=== PATIENT | male | born 1995 | race Caucasian/White ===

== ENCOUNTER 2016-08-19 14:24 | Emergency (ER) | payer OTHER ==
--- NOTE | 2016-08-19 15:27 | ED ---
Head Injury - HPI Summary HPI Summary: 21 M presents with head injury three days ago when he ran into a wooden door. He had a headache immediately after. He states that he woke up nauseous the next day. He admits to feeling tired and some difficulty concentrating. He denies any LOC, severe headache, or vomiting. He denies any change in vision or any altered mental status. He states he was still able to go to class and concentrate but felt very tired afterwards. He states that he hit the front of his head. He denies any ETOH or drug use with it. - History Of Current Complaint Chief Complaint: EDHeadInjury Stated Complaint: HEAD INJURY Time Seen by Provider: 08/19/16 14:57 Pain Intensity: 2 - Allergies/Home Medications Allergies/Adverse Reactions: Allergies Allergy/AdvReac Type Severity Reaction Status Date / Time Metoclopramide [From Reglan] Allergy Pain Verified 08/19/16 14:29 [place] Allergy Anaphylatic Verified 08/19/16 14:29 Shock Tree Nuts Allergy Anaphylatic Verified 08/19/16 14:29 Shock PMH/Surg Hx/FS Hx/Imm Hx Endocrine/Hematology History: Denies: Hx Anticoagulant Therapy Cardiovascular History: Denies: Hx Hypertension Infectious Disease History: No Infectious Disease History: Denies: Traveled Outside the [place] in Last 30 Days - Family History Known Family History: Positive: Hypertension - Social History Alcohol Use: Weekly Hx Substance Use: No Substance Use Type: Reports: None Substance Use Comment - Amount & Last Used: Unknown Smoking Status (MU): Never Smoked Tobacco Review of Systems Negative: Fever Negative: Blurred Vision, Diplopia Negative: Chest Pain Negative: Shortness Of Breath Positive: Nausea. Negative: Vomiting Positive: Headache All Other Systems Reviewed And Are Negative: Yes Physical Exam Triage Information Reviewed: Yes Vital Signs On Initial Exam: Initial Vitals Temp Pulse Resp BP Pulse Ox 98.3 F 60 16 126/39 100 08/19/16 14:29 08/19/16 14:29 08/19/16 14:29 08/19/16 14:29 08/19/16 14:29 Vital Signs Reviewed: Yes Appearance: Positive: Well-Appearing Skin: Positive: Warm, Dry Head/Face: Positive: Normal Head/Face Inspection, Other - no step off, racoon or chávez sign present Eyes: Positive: Normal, EOMI, DALILA, Conjunctiva Clear ENT: Positive: Normal ENT inspection, Pharynx normal, TMs normal Neck: Positive: Supple, Nontender, No Lymphadenopathy Respiratory/Lung Sounds: Positive: Clear to Auscultation, Breath Sounds Present Cardiovascular: Positive: Normal, RRR Neurological: Positive: Sensory/Motor Intact, Alert, Oriented to Person Place, Time, CN Intact II-III, Normal Gait, Speech Normal - Efrem Coma Scale Best Eye Response: 4 - Spontaneous Best Motor Response: 6 - Obeys Commands Best Verbal Response: 5 - Oriented Coma Scale Total: 15 Diagnostics - Vital Signs Vital Signs Temp Pulse Resp BP Pulse Ox 08/19/16 14:29 98.3 F 60 16 126/39 100 - Laboratory Lab Statement: Any lab studies that have been ordered have been reviewed, and results considered in the medical decision making process. Head Injury Course/Dx Course Of Treatment: 21 M presents with head injury three days ago. rates headache as mild with nausea but has not thrown up. mechanism was ran into door with front part of head. no step off on exam and neuro exam normal. discussed could get CT but according to radha CT head rule unnecessary due to no vomiting, LOC or severe headache, patient agrees and does not want a CT. will d/ c with zofran and advised to take tyenlol. advised to return if headache becomes severe or starts vomiting, discussed perform school work as tolerated and not to play in any sports or excerise until at least a day without symptoms and to follow up with sonja, patient understands and agrees with plan - Diagnoses Differential Diagnosis/HQI/PQRI: Concussion Without LOC, Contusion, Intracranial Bleed Provider Diagnoses: Concussion Discharge - Discharge Plan Condition: Stable Disposition: HOME Prescriptions: Ondansetron ODT TAB* [Zofran Odt TAB*] 4 mg PO Q6H PRN #10 tab.odt PRN Reason: Nausea Patient Education Materials: Concussion (ED) [facility]errals: [facility] [Outside] Additional Instructions: Take Tylenol for headache Is normal to feel sleeper than usual and to have a change in appetite Take zofran every 6 hours for nausea Do not play sports or exercise until symptoms resolve Follow up with Sonja within 5 days Return to ED if develop vomiting, severe headache, change in behavior, or any new or worsening symptoms
[2016-08-19] MEDS ORDERED: Ondansetron ODT TAB* 4 MG PO ONE (15:31)
[2016-08-19] MEDS ORDERED: Ondansetron TAB* 4 MG ONE (15:32)
[2016-08-19 15:41] VITALS: BP 118/67
== END 2016-08-19 15:40 | disposition home or self-care (01) ==
LOC: ED 14:24
DX: S06.0X0A Concussion without loss of consciousness, initial encounter (principal); R51 Headache; S09.90XA Unspecified injury of head, initial encounter; W22.8XXA Striking against or struck by other objects, initial encounter; Y93.9 Activity, unspecified; Y92.9 Unspecified place or not applicable
CPT/HCPCS: 99282; A9270-GY

== ENCOUNTER → 2016-10-27 16:54 | Emergency (ER) | payer OTHER ==
[~2016-10-27 16:54] MED LIST: Albuterol/Ipratropium NEB.SOL* Albuterol 2.5 MG/Ipratropium 0.5 MG 3 ML INH ONE; Albuterol/Ipratropium NEB.SOL* Albuterol 2.5 MG/Ipratropium 0.5 MG 3 ML ONE; Famotidine IV* 10 MG/ML 2 ML (20 mg) IV SLOW PU ONE; methylPREDNISolone SOD SUCC* 125 MG 2 ML VIAL IV ONE
[2016-10-27 20:49] VITALS: BP 124/52
--- NOTE | 2016-10-27 22:27 | ED ---
Milton Duong Benjamin, scribed for Nahun Talbert MD on 10/27/16 at 1753 . Allergic Reaction/Systemic - HPI Summary HPI Summary: 21yo male c/o allergic reaction to an unknown source. Pt have allergies but denies any intake of allergic food. Pt presents some facial and periorbital swelling. - History of Current Complaint Chief Complaint: EDAllergicReaction Time Seen by Provider: 10/27/16 17:22 Hx Obtained From: Patient Onset/Duration: Sudden Onset, Started hours ago, Still Present Timing: Constant Severity Initially: Mild Severity Currently: Mild Pain Intensity: 0 Location: Discrete @ - face swelling Character: Swelling - face Aggravating Factor(s): Nothing Alleviating Factor(s): Nothing Associated Signs And Symptoms: Positive: Negative. Negative: Difficulty Breathing - Related Hx Possible Reaction To: Unknown - Allergies/Home Medications Allergies/Adverse Reactions: Allergies Allergy/AdvReac Type Severity Reaction Status Date / Time Metoclopramide [From Reglan] Allergy Pain Verified 10/27/16 17:50 Tree Nuts Allergy Anaphylatic Verified 10/27/16 17:50 Shock POPPY SEEDS/SESAME SEEDS Allergy Hives Uncoded 10/23/16 15:52 PMH/Surg Hx/FS Hx/Imm Hx Endocrine/Hematology History: Denies: Hx Anticoagulant Therapy, Hx Diabetes Cardiovascular History: Denies: Hx Hypertension, Hx Pacemaker/ICD History: Denies: Hx Renal Disease Sensory History: Denies: Hx Hearing Aid Psychiatric History: Denies: Hx Panic Disorder - Surgical History Surgery Procedure, Year, and Place: WISDOM TEETH Infectious Disease History: Denies: Traveled Outside the [place] in Last 30 Days - Family History Known Family History: Positive: Hypertension - Social History Occupation: Employed Full-time Lives: Alone Alcohol Use: Weekly Hx Substance Use: No Substance Use Type: Reports: None Substance Use Comment - Amount & Last Used: Unknown Smoking Status (MU): Never Smoked Tobacco Review of Systems Constitutional: Negative Eyes: Negative ENT: Negative Cardiovascular: Negative Respiratory: Negative Gastrointestinal: Negative Genitourinary: Negative Musculoskeletal: Negative Positive: Other - facial swelling. Negative: Rash Neurological: Negative Psychological: Normal All Other Systems Reviewed And Are Negative: Yes Physical Exam Triage Information Reviewed: Yes Vital Signs On Initial Exam: Initial Vitals Temp Pulse Resp BP Pulse Ox 97.7 F 57 20 141/60 100 10/27/16 16:57 10/27/16 16:57 10/27/16 16:57 10/27/16 16:57 10/27/16 16:57 Vital Signs Reviewed: Yes Appearance: Positive: Well-Appearing, No Pain Distress, Well-Nourished Skin: Positive: Warm, Skin Color Reflects Adequate Perfusion, Dry, Other - periorbital swelling Head/Face: Positive: Normal Head/Face Inspection Eyes: Positive: Normal, EOMI, DALILA ENT: Positive: Normal ENT inspection Neck: Positive: Supple, Nontender Respiratory/Lung Sounds: Positive: Clear to Auscultation, Breath Sounds Present Cardiovascular: Positive: RRR Abdomen Description: Positive: Nontender, No Organomegaly Bowel Sounds: Positive: Present Musculoskeletal: Positive: Normal, Strength/ROM Intact Neurological: Positive: Sensory/Motor Intact, Alert, Oriented to Person Place, Time, CN Intact II-III, Reflexes Intact Psychiatric: Positive: Affect/Mood Appropriate Diagnostics - Vital Signs Vital Signs Temp Pulse Resp BP Pulse Ox 10/27/16 16:57 97.7 F 57 20 141/60 100 - Laboratory Lab Statement: Any lab studies that have been ordered have been reviewed, and results considered in the medical decision making process. Allergic Reaction Course/Dx - Course Course Of Treatment: Mr. Alcaraz improved here and I will D/C him. He is carrying his epipen with him. - Diagnoses Provider Diagnoses: Allergic reaction Discharge - Discharge Plan Condition: Stable Disposition: HOME Patient Education Materials: General Allergic Reaction (ED) Referrals: Eber Contreras DO [Primary Care Provider] - The documentation as recorded by the Milton frank Benjamin accurately reflects the service I personally performed and the decisions made by me, Nahun Talbert MD.
== END | disposition home or self-care (01) ==
LOC: ED 16:54
DX: T78.40XA Allergy, unspecified, initial encounter (principal); R22.0 Localized swelling, mass and lump, head; X58.XXXA Exposure to other specified factors, initial encounter; Z88.8 Allergy status to other drugs, medicaments and biological substances
CPT/HCPCS: 94640; 96374; 96375; 99283; A9270-GY; J2930